=== PATIENT | male | born 1970 | race Caucasian/White ===

== ENCOUNTER 2016-12-08 13:24 | Emergency (ER) | payer SELFPAY ==
[~2016-12-08] VITALS: Ht 175.3 cm; Wt 88.2 kg
[2016-12-08 13:40] VITALS: BP 122/70; PULSE 83; RESP 16; TEMP 98.8; O2SAT 97
[2016-12-08] MEDS ORDERED: CEFP500T PO (14:35)
[2016-12-08] MEDS ORDERED: EAR6.5SO3 OT (14:42)
[2016-12-08] MEDS ORDERED: AUGM875T3 PO (14:48)
--- NOTE | 2016-12-08 14:49 | PD ---
HPI Chief Complaint: ENT Complaint Time Seen by Provider: 14:32 Travel History International Travel<30 days: No Contact w/Intl Traveler<30days: No Traveled to known affect area: No History of Present Illness HPI This is a 46-year-old male who presents to the emergency department with right ear pain that's been going on for several weeks, constant, moderate severity, worsening over the past several days. He started to have copious drainage from his right ear which concerned him. He has completed a course of topical antibiotics thinking that it was swimmer's ear and his primary care doctor had him complete 10 days of Ceftin. Currently he is on a fluoroquinolone drop but it doesn't seem to be helping. He does acknowledge that 2 days ago he flew a plane and tried to get the drainage out of his ear but he was already having copious drainage from the ear at that time. He denies any fevers or chills and otherwise feels well. PFSH Past Medical History Tetanus Vaccination: Unknown Influenza Vaccination: No Past Surgical History Tonsillectomy: Yes Social History Alcohol Use: No Tobacco Use: No Substance Use: No Allergies-Medications (Allergen,Severity, Reaction): Coded Allergies: No Known Allergies (Unverified , 12/08/16) Reported Meds & Prescriptions Reported Meds & Active Scripts Active Reported Ear Drops (Carbamide Peroxide Otic Drops) Unknown Strength Soln Unknown Dose OT DIRECTED Cefprozil 500 Mg Tab 500 Mg PO BID Review of Systems Except as stated in HPI: all other systems reviewed are Neg Physical Exam Narrative GENERAL: Well-appearing, no acute distress, nontoxic SKIN: Warm and dry. HEAD: Atraumatic. Normocephalic. ENT: Right tympanic membrane is ruptured, thick yellow and some serous drainage from the ear, no swelling of the ear canal itself and minimal pain with manipulation of the auricle MUSCULOSKELETAL: No obvious deformities. No clubbing. No cyanosis. No edema. NEUROLOGICAL: Awake and alert. No obvious cranial nerve deficits. Motor grossly within normal limits. Normal speech. PSYCHIATRIC: Appropriate mood and affect; insight and judgment normal. Data Data Last Documented VS Vital Signs Date Time Temp Pulse Resp B/P (MAP) Pulse Ox O2 Delivery O2 Flow Rate FiO2 12/08/16 13:40 98.8 83 16 122/70 (87) 97 MDM Medical Decision Making Medical Screen Exam Complete: Yes Emergency Medical Condition: Yes Interpretation(s) Afebrile, no tachycardia, normotensive Differential Diagnosis Otitis media, perforated tympanic membrane, otitis externa Narrative Course This is a 46-year-old male who presents to the emergency department with drainage from the right ear and several weeks of discomfort in his right ear. On exam he appears to have a ruptured tympanic membrane which likely started as otitis media. I don't see signs suggestive of otitis externa. Patient was instructed to continue his fluoroquinolones drops and he'll be started on Augmentin. He does have an ear nose and throat appointment in one week. Diagnosis Primary Impression: Otitis media with rupture of tympanic membrane Qualified Codes: H66.91 - Otitis media, unspecified, right ear; H72.91 - Unspecified perforation of tympanic membrane, right ear Patient Instructions: General Instructions Additional Instructions: If you develop fever, or severe or worsening pain particularly behind your ear return to the emergency department. Complete your course of both topical and oral antibiotics and follow up with ENT as scheduled. Med/Other Pt SpecificInfo: Prescription(s) given Scripts Amoxicillin-Clavulanate (Augmentin) 875-125 Mg Tab 1 TAB PO BID for Infection for 10 Days, TAB 0 Refills Prov: Winter Chandra MD 12/08/16 Disposition: 01 DISCHARGE HOME Condition: Stable Winter Chandra MD Dec 08, 2016 14:49
[2016-12-08] MEDS ORDERED: OFLO0.3D9 RIGHT EAR (14:53)
== END 2016-12-08 15:07 | disposition home or self-care (01) ==
LOC: PHEFT 13:24
DX: H66.91 Otitis media, unspecified, right ear (principal); H72.91 Unspecified perforation of tympanic membrane, right ear
CPT/HCPCS: 99283

== ENCOUNTER 2017-08-28 11:38 | Emergency (ER) | payer OTHER ==
[~2017-08-28] VITALS: Ht 172.7 cm; Wt 94.0 kg
[~2017-08-28 11:38] MED LIST: AUGM875T3 PO; CEFP500T PO; EAR6.5SO3 OT; OFLO0.3D9 RIGHT EAR
[2017-08-28 11:42] VITALS: BP 152/70; PULSE 86; RESP 16; TEMP 98.6; O2SAT 96
[2017-08-28] MEDS ORDERED: PROP1TAB (11:52)
[2017-08-28] MEDS ORDERED: MEDR4PAK PO (12:26)
[2017-08-28] MEDS ORDERED: IBUP1TAB7 PO (12:26)
--- NOTE | 2017-08-28 12:37 | PD ---
HPI Chief Complaint: Back/ Neck Pain or Injury Time Seen by Provider: 12:16 Travel History International Travel<30 days: No Contact w/Intl Traveler<30days: No Traveled to known affect area: No History of Present Illness HPI 47-year-old male presents emergency department for evaluation of low back pain that started Saturday. Says that he began having back pain in the morning located in the lower lumbar region. He denies any trauma or inciting events. Denies radiation of pain. Patient says that the pain is mild to moderate in severity and nonradiating. Says he went to the [facility] on Saturday and he was prescribed Robaxin and advised to double up on Aleve for his pain. Says yesterday he had no improvement and today he feels that as if his pain is worse. Says he has history of back pain 20 years ago which resolved with Robaxin, ibuprofen, and a pain medication. Denies fevers, loss of bowel or bladder function, saddle anesthesia, IV drug use, direct trauma. He is concerned that may be a serious process. PFSH Past Surgical History Tonsillectomy: Yes Social History Alcohol Use: No Tobacco Use: No Substance Use: No Allergies-Medications (Allergen,Severity, Reaction): Coded Allergies: No Known Allergies (Unverified Adverse Reaction, Unknown, 08/28/17) Reported Meds & Prescriptions Reported Meds & Active Scripts Active Ibuprofen 800 Mg Tab 800 Mg PO Q8H PRN 5 Days Medrol Dosepak (Methylprednisolone) 4 Mg Dspk 4 Mg PO DIRECTED Per Pharmacist direction Reported Propecia (Finasteride (Alopecia)) 1 Mg Tab Review of Systems Except as stated in HPI: all other systems reviewed are Neg Physical Exam Narrative GENERAL: Well-nourished, well-developed patient, in NAD SKIN: Focused skin assessment warm/dry. No rashes or lesions. HEAD: Normocephalic. Atraumatic. EYES: No scleral icterus. No injection or drainage. THROAT: No pharyngeal injection, exudates, or tonsillar hypertrophy. Airway is patent. NECK: Supple, trachea midline. No JVD or lymphadenopathy. No meningismus. CARDIOVASCULAR: Regular rate and rhythm without murmurs, gallops, or rubs. RESPIRATORY: Breath sounds equal bilaterally. No accessory muscle use. No wheezes, rales, or rhonchi MUSCULOSKELETAL: No cyanosis, or edema. BACK: No CVA tenderness. No rash. No point tenderness on palpation of the spine. Mild tenderness palpation to the lower lumbar paraspinous region, right> left Data Data Last Documented VS Vital Signs Date Time Temp Pulse Resp B/P (MAP) Pulse Ox O2 Delivery O2 Flow Rate FiO2 08/28/17 11:42 98.6 86 16 152/70 (97) 96 Orders Orders Ed Discharge Order (08/28/17 12:37) MDM Medical Decision Making Medical Screen Exam Complete: Yes Emergency Medical Condition: Yes Differential Diagnosis lumbago, sciatica, muscle spasms, strain, sprain, fracture, cauda equina syndrome, abscess Narrative Course 47-year-old male presents emergency department for evaluation of low back pain that started Saturday. Says that he began having back pain in the morning located in the lower lumbar region. He denies any trauma or inciting events. Denies radiation of pain. Patient says that the pain is mild to moderate in severity and nonradiating. Says he went to the [facility] on Saturday and he was prescribed Robaxin and advised to double up on Aleve for his pain. Says yesterday he had no improvement and today he feels that as if his pain is worse. Says he has history of back pain 20 years ago which resolved with Robaxin, ibuprofen, and a pain medication. Denies fevers, loss of bowel or bladder function, saddle anesthesia, IV drug use, direct trauma. He is concerned that may be a serious process. Vital signs are stable. Physical exam findings are reassuring. His pain is located on the lateral aspects of the paraspinous region of the lumbar spine. I had an extensive discussion with him regarding these findings today. I provided reassurance as I do not believe this is a serious process. Patient was concerned because 20 years ago his pain resolved with minimal medications and over a couple of days. I advised that this was 20 years ago and patient is now 47 and may take in a little while longer for his pain to go away. We will discharge the patient with prednisone and ibuprofen. Patient has Robaxin from his visit with the clinic a couple of days ago. I recommended that he follow-up with a primary care physician and consider orthopedics for further evaluation. I recommended that he work on weight loss and strengthening the back and abdominal muscles to reduce his pain. He states understanding will comply. Diagnosis Primary Impression: Lumbago Qualified Codes: M54.5 - Low back pain Referrals: [facility] Orthopedist Primary Care Physician Departure Forms: Tests/Procedures, Work Release Enter return to work date: August 31, 2017 Additional Instructions: Perform light stretches of the lower back and legs, and alternate heat and ice packs. If you develop increased pain, weakness, fever, chills, or bowel or bladder issues, return to the ED for further treatment and evaluation. Follow up with your primary care physician in 2-3 days. Scripts Ibuprofen (Ibuprofen) 800 Mg Tab 800 MG PO Q8H Y for Pain/Inflammation for 5 Days, #15 TAB 0 Refills Prov: Landon Diop MD 08/28/17 Methylprednisolone Dosepak (Medrol Dosepak) 4 Mg Dspk 4 MG PO DIRECTED, #1 DSPK 0 Refills Per Pharmacist direction Prov: Landon Diop MD 08/28/17 Disposition: 01 DISCHARGE HOME Condition: Stable Ann Marie Kaufman August 28, 2017 12:37
== END 2017-08-28 12:57 | disposition home or self-care (01) ==
LOC: PHEFT 11:38
DX: M54.5 Low back pain (principal)
CPT/HCPCS: 99283